=== PATIENT | male | born 1980 | race Caucasian/White ===

== ENCOUNTER 2021-06-06 21:48 | Emergency (ER) | payer OTHER ==
[2021-06-06] MEDS ORDERED: Ketorolac 30 MG/ML SDV IVPUSH ONE (23:31)
[2021-06-07] MEDS ORDERED: HYDROmorphone 1 MG/ML Syringe IVPUSH ONE (00:49)
--- NOTE | 2021-06-07 01:00 | EDM.PDOC ---
ED HPI GENERAL MEDICAL PROBLEM - General Chief Complaint: Bite:Animal, Insect Stated Complaint: FACIAL SWELLING Time Seen by Provider: 06/06/21 22:44 Source of Information: Reports: Patient History Limitations: Reports: No Limitations - History of Present Illness INITIAL COMMENTS - FREE TEXT/NARRATIVE: Alban is a 41-year-old male presenting to the ED for evaluation of a lesion on his face that has now caused facial swelling, pain, and swelling around the left eye. Patient states that the lesion started several days ago and looked like a small pimple. It started to form a larger area that was more indurated and very painful. This morning it had formed a Looking like an abscess so the patient took a knife that he sterilized and lanced the wound expressing a large quantity of pus. Since then, the inflammation, tenderness, increased redness and swelling has significantly expanded and is now encompassing the left lower eyelid and left side of the face. It is worrisome is that the patient is a type I diabetic and this has been a rapidly expanding lesion. Left Face/Facial Pain Score (Numeric/FACES): 8 - Related Data Allergies Allergy/AdvReac Type Severity Reaction Status Date / Time rivaroxaban [From Xarelto] Allergy Blisters Verified 06/06/21 22:27 Home Meds: Home Meds Gabapentin [Neurontin] 300 mg PO DAILY PRN 06/06/21 [History] Insulin Glargine,Hum.Rec.Anlog [Toumoi Solostar] 40 units SQ BEDTIME 06/06/21 [History] Insulin Lispro [Insulin Lispro Kwikpen U-100] 0 unit SQ ASDIRECTED 06/06/21 [History] Zolpidem Tartrate 10 mg PO BEDTIME 06/06/21 [History] amLODIPine Besylate [Amlodipine Besylate] 10 mg PO BEDTIME 06/06/21 [History] lisinopriL [Lisinopril] 40 mg PO DAILY 06/06/21 [History] Past Medical History HEENT History: Reports: None Cardiovascular History: Reports: Arrhythmia, Hypertension Respiratory History: Reports: None Gastrointestinal History: Reports: None, Pancreatitis Genitourinary History: Reports: None Musculoskeletal History: Reports: Fracture Neurological History: Reports: Neuropathy, Diabetic Psychiatric History: Reports: Anxiety, Depression Endocrine/Metabolic History: Reports: Diabetes, Type I Hematologic History: Reports: Anemia, Iron Deficiency Immunologic History: Reports: None Oncologic (Cancer) History: Reports: None Dermatologic History: Reports: Other (See Below) Other Dermatologic History: right foot skin infection - Infectious Disease History Infectious Disease History: Reports: Chicken Pox - Past Surgical History HEENT Surgical History: Reports: None Musculoskeletal Surgical History: Reports: Shoulder Surgery, Other (See Below) Other Musculoskeletal Surgeries/Procedures:: right 3rd and 4th and 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 spider bite Social & Family History - Tobacco Use Tobacco Use Status *Q: Never Tobacco User - Caffeine Use Caffeine Use: Reports: Coffee - Recreational Drug Use Recreational Drug Use: No ED ROS GENERAL - Review of Systems Review Of Systems: See Below Constitutional: Reports: Fever, Chills, Malaise HEENT: Reports: Other (Left facial swelling, redness, and swelling around the left eye.) Respiratory: Reports: No Symptoms Cardiovascular: Reports: No Symptoms Endocrine: Reports: High Glucose GI/Abdominal: Reports: No Symptoms : Reports: No Symptoms Musculoskeletal: Reports: No Symptoms Skin: Reports: No Symptoms Neurological: Reports: No Symptoms Psychiatric: Reports: No Symptoms Hematologic/Lymphatic: Reports: No Symptoms Immunologic: Reports: No Symptoms ED EXAM, GENERAL - Physical Exam Exam: See Below Exam Limited By: No Limitations General Appearance: Alert, Anxious, Mild Distress, Moderate Distress Eye Exam: Left Eye: Periorbital Changes (Significant redness, tenderness, and swelling of the lower lid and left side of the face), Vision Changes (Patient has difficult time seeing out of the left eye due to the swelling of the lid.), Bilateral Eye: EOMI Ears: Normal External Exam Nose: Normal Inspection Throat/Mouth: Normal Inspection Head: Facial Swelling (Marked left-sided facial swelling), Facial Tenderness (Marked left-sided facial tenderness), Other (Erythema with a lanced abscess in the center of the lesion. The erythema is rapidly expanding across the left side of the face.) Neck: Normal Inspection, Supple, Non-Tender, Full Range of Motion. No: Lymphadenopathy (R), Lymphadenopathy (L) Respiratory/Chest: No Respiratory Distress, Lungs Clear, Normal Breath Sounds Cardiovascular: Normal Peripheral Pulses, Regular Rate, Rhythm, Tachycardia Peripheral Pulses: 2+: Radial (L), Radial (R) Neurological: Alert, Oriented, CN II-XII Intact, Normal Cognition, No Motor/Sensory Deficits Skin Exam: Erythema (Left face and periorbital region), Increased Warmth Course - Vital Signs Last Recorded V/S: Last Vital Signs Temp 37.1 C 06/06/21 22:25 Pulse 98 06/06/21 23:46 Resp 16 06/06/21 23:46 BP 165/85 H 06/06/21 23:46 Pulse Ox 96 06/06/21 23:46 - Orders/Labs/Meds Orders: Active Orders 24 hr Category Date Time Status BABESIA MICROTI ANTIBODY PANEL Urgent Lab 06/06/21 23:20 Received CULTURE BLOOD [BC] Urgent Lab 06/06/21 23:00 Received CULTURE BLOOD [BC] Urgent Lab 06/06/21 23:20 Received HUMAN GRANULOCYTIC INGRID-HGE Urgent Lab 06/06/21 23:20 Received Vancomycin 1.5 gm Med 06/07/21 00:32 Active Sodium Chloride 0.9% [Normal Saline] 250 ml IV ONETIME Blood Culture x2 Reflex Set [OM.PC] Urgent Oth 06/06/21 22:52 Ordered Medication Orders Vancomycin HCl 1.5 gm/ Sodium (Chloride) 250 mls @ 150 mls/hr IV ONETIME STA Stop: 06/07/21 02:11 Labs: Laboratory Tests 06/06/21 06/06/21 06/06/21 Range/Units 23:20 23:20 23:20 WBC 10.9 (4.5-11.0) K/uL RBC 3.71 L (4.30-5.90) M/uL Hgb 11.6 L (12.0-15.0) g/dL Hct 33.6 L (40.0-54.0) % MCV 91 (80-98) fL MCH 31 (27-31) pg MCHC 35 (32-36) % Plt Count 382 (150-400) K/uL Neut % (Auto) 74.6 H (36-66) % Lymph % (Auto) 13.2 L (24-44) % Mccreary % (Auto) 7.0 H (2-6) % Eos % (Auto) 4.3 H (2-4) % Baso % (Auto) 0.9 (0-1) % Sodium 142 (140-148) mmol/L Potassium 3.6 (3.6-5.2) mmol/L Chloride 105 (100-108) mmol/L Carbon Dioxide 23 (21-32) mmol/L Anion Gap 13.6 (5.0-14.0) mmol/L BUN 10 (7-18) mg/dL Creatinine 1.0 (0.8-1.3) mg/dL Est Cr Clr Drug Dosing 115.31 mL/min Estimated GFR (MDRD) > 60 (>60) Glucose 151 H (74-106) mg/dL Lactic Acid (0.4-2.0) mmol/L Calcium 8.9 (8.5-10.1) mg/dL Total Bilirubin 0.2 (0.2-1.0) mg/dL AST 23 (15-37) U/L ALT 33 (12-78) U/L Alkaline Phosphatase 143 H (46-116) U/L C-Reactive Protein 0.77 H (0.0-0.3) mg/dL Total Protein 7.8 (6.4-8.2) g/dL Albumin 3.3 L (3.4-5.0) g/dL Globulin 4.5 H (2.3-3.5) g/dL Albumin/Globulin Ratio 0.7 L (1.2-2.2) Lyme Disease IgG Ab Negative (Negative) Lyme Disease IgM Ab Negative (Negative) 06/06/21 Range/Units 23:20 WBC (4.5-11.0) K/uL RBC (4.30-5.90) M/uL Hgb (12.0-15.0) g/dL Hct (40.0-54.0) % MCV (80-98) fL MCH (27-31) pg MCHC (32-36) % Plt Count (150-400) K/uL Neut % (Auto) (36-66) % Lymph % (Auto) (24-44) % Mccreary % (Auto) (2-6) % Eos % (Auto) (2-4) % Baso % (Auto) (0-1) % Sodium (140-148) mmol/L Potassium (3.6-5.2) mmol/L Chloride (100-108) mmol/L Carbon Dioxide (21-32) mmol/L Anion Gap (5.0-14.0) mmol/L BUN (7-18) mg/dL Creatinine (0.8-1.3) mg/dL Est Cr Clr Drug Dosing mL/min Estimated GFR (MDRD) (>60) Glucose (74-106) mg/dL Lactic Acid 1.3 (0.4-2.0) mmol/L Calcium (8.5-10.1) mg/dL Total Bilirubin (0.2-1.0) mg/dL AST (15-37) U/L ALT (12-78) U/L Alkaline Phosphatase (46-116) U/L C-Reactive Protein (0.0-0.3) mg/dL Total Protein (6.4-8.2) g/dL Albumin (3.4-5.0) g/dL Globulin (2.3-3.5) g/dL Albumin/Globulin Ratio (1.2-2.2) Lyme Disease IgG Ab (Negative) Lyme Disease IgM Ab (Negative) Meds: Medications Generic Name Dose Route Start Last Admin Trade Name Freq PRN Reason Stop Dose Admin Vancomycin HCl 1.5 gm/ Sodium 250 mls @ 150 mls/hr 06/07/21 00:32 Chloride IV 06/07/21 02:11 ONETIME STA Discontinued Medications Generic Name Dose Route Start Last Admin Trade Name Freq PRN Reason Stop Dose Admin Hydromorphone HCl 1 mg 06/07/21 00:49 Hydromorphone 1 Mg/Ml Syringe IVPUSH 06/07/21 00:50 ONETIME ONE Ketorolac Tromethamine 30 mg 06/06/21 23:31 06/06/21 23:45 Ketorolac 30 Mg/Ml Sdv IVPUSH 06/06/21 23:32 30 mg ONETIME ONE Administration - Re-Assessments/Exams Free Text/Narrative Re-Assessment/Exam: 06/07/21 01:11 I did review the patient's labs showing a leukocyte count of 10.9 with a left shift. His hemoglobin is 11.6 with hematocrit of 33.6 and a platelet count of 382,000. His comprehensive metabolic panel is unremarkable. His glucose is 151. CRP is elevated 0.77 and his lactate is 1.3. Patient has a significant preseptal cellulitis. I am worried as he has a type I diabetic and will likely need admission for IV antibiotics until we turn this around. We initiated antibiotics after blood cultures were obtained starting him on vancomycin 1500 mg IV and meropenem 1 g IV. As there are no beds available here I will reach out to [facility] to arrange for transfer to [place] of the patient. I discussed the case with Dr. Travis who accepts the patient in transfer for admission to the medical service. We will arrange for [facility] to transfer the patient. Departure - Departure Time of Disposition: 01:13 Disposition: DC/Tfer to [facility] 02 Clinical Impression: Facial cellulitis, Periorbital cellulitis of left eye Diabetes type 1, controlled Qualifiers: Diabetes mellitus complication status: with unspecified complications Qualified Code(s): E10.8 - Type 1 diabetes mellitus with unspecified complications - Discharge Information Referrals: PCP,None [Primary Care Provider] - Forms: ED Department Discharge Sepsis Event Note (ED) - Evaluation Sepsis Screening Result: No Definite Risk - Focused Exam Vital Signs: Vital Signs Temp Pulse Resp BP Pulse Ox 06/06/21 23:46 98 16 165/85 H 96 06/06/21 22:25 37.1 C 117 H 20 157/88 H 99 06/06/21 22:16 37.1 C 117 H 20 157/88 H 99 - Problem List & Annotations (1) Diabetes type 1, controlled SNOMED Code(s): 03704272, 900056588 Code(s): E10.9 - TYPE 1 DIABETES MELLITUS WITHOUT COMPLICATIONS Status: Chronic Priority: Medium Current Visit: Yes Qualifiers: Diabetes mellitus complication status: with unspecified complications Qualified Code(s): E10.8 - Type 1 diabetes mellitus with unspecified complications (2) Facial cellulitis SNOMED Code(s): 143300128 Code(s): L03.211 - CELLULITIS OF FACE Status: Acute Priority: High Current Visit: Yes (3) Periorbital cellulitis of left eye SNOMED Code(s): 032354745 Code(s): L03.213 - PERIORBITAL CELLULITIS Status: Acute Priority: High Current Visit: Yes - Problem List Review Problem List Initiated/Reviewed/Updated: Yes - My Orders Last 24 Hours: My Active Orders 06/06/21 22:52 Blood Culture x2 Reflex Set [OM.PC] Urgent 06/06/21 23:00 CULTURE BLOOD [BC] Urgent 06/06/21 23:20 BABESIA MICROTI ANTIBODY PANEL Urgent CULTURE BLOOD [BC] Urgent HUMAN GRANULOCYTIC INGRID-HGE Urgent 06/07/21 00:32 Vancomycin 1.5 gm Sodium Chloride 0.9% [Normal Saline] 250 ml IV ONETIME - Assessment/Plan Last 24 Hours: My Active Orders 06/06/21 22:52 Blood Culture x2 Reflex Set [OM.PC] Urgent 06/06/21 23:00 CULTURE BLOOD [BC] Urgent 06/06/21 23:20 BABESIA MICROTI ANTIBODY PANEL Urgent CULTURE BLOOD [BC] Urgent HUMAN GRANULOCYTIC INGRID-HGE Urgent 06/07/21 00:32 Vancomycin 1.5 gm Sodium Chloride 0.9% [Normal Saline] 250 ml IV ONETIME
[2021-06-07] MEDS ORDERED: Meropenem 1 GM in Sodium Chloride 0.9% 100 ML IV ONE (01:12)
[2021-06-11 15:09] LABS: HGE IGG TITER Negative (Neg:<1:64); HGE IGM TITER Negative (Neg:<1:20)
== END 2021-06-07 01:54 ==
LOC: JP.ED 21:48
DX: L03.213 Periorbital cellulitis (principal); E10.40 Type 1 diabetes mellitus with diabetic neuropathy, unspecified; I10 Essential (primary) hypertension; Z88.8 Allergy status to other drugs, medicaments and biological substances; Z79.899 Other long term (current) drug therapy
CPT/HCPCS: 36415; 80053; 83605; 85025; 86140; 86618; 86666; 86753; 87040; 96365; 96368; 96375; 99284; J1170; J1885; J2185; J3370; J7050